=== PATIENT | female | born 1970 | race Caucasian/White ===

== ENCOUNTER 2018-09-06 11:45 | Emergency (ER) | payer MEDICARE, OTHER ==
[~2018-09-06] VITALS: Ht 160 cm; Wt 72.6 kg
[2018-09-06] MEDS ORDERED: AMLODIPINE (11:59)
[2018-09-06] MEDS ORDERED: COREG (11:59)
--- NOTE | 2018-09-06 12:10 | NUR ---
Dr. Rahman here to see pt for MSE.
--- NOTE | 2018-09-06 13:04 | NUR ---
Patient discharged to home in stable conditon. Written and verbal after care instructions given. Patient verbalizes understanding of instructions. Rx x1 given. pt took all belongings. pt ambulatory with a steady gait
[2018-09-06 13:05] VITALS: BP 148/72
== END 2018-09-06 13:06 | disposition home or self-care (01) ==
LOC: ER 11:48
DX: S20.211A Contusion of right front wall of thorax, initial encounter (principal); Z79.899 Other long term (current) drug therapy; W18.30XA Fall on same level, unspecified, initial encounter; Y93.89 Activity, other specified; Y92.89 Other specified places as the place of occurrence of the external cause; Y99.8 Other external cause status
CPT/HCPCS: 71101; A4663

== ENCOUNTER 2018-12-18 20:26 | Emergency (ER) | payer MEDICARE, OTHER ==
[~2018-12-18] VITALS: Ht 157.5 cm; Wt 72.6 kg
[~2018-12-18 20:26] MED LIST: AMLODIPINE; COREG
--- NOTE | 2018-12-18 21:07 | NUR ---
Patient seen by ER MD, awaiting Xrays at this time. ultra sound technician is aware of new orders.
--- NOTE | 2018-12-18 21:09 | NUR ---
Xray at bedside.
--- NOTE | 2018-12-18 21:19 | NUR ---
Visitor at bedside
--- NOTE | 2018-12-18 21:42 | NUR ---
Patient given Motrin per ER MD order. Well tolerated by patient. no acute distress noted. VSS
[2018-12-18] MEDS ORDERED: IBUPROFEN 600 MG TABLET ONE (21:43)
[2018-12-18] MEDS ORDERED: IBUPROFEN 600 MG TABLET PO ONE (21:45)
--- NOTE | 2018-12-18 22:05 | NUR ---
Patient in bed, laughing and joking with family member. No visible distress noted at this time. Will continue to monitor patient. VSS
--- NOTE | 2018-12-18 22:40 | NUR ---
Patient discharged to home in stable conditon. Written and verbal after care instructions given. Patient verbalizes understanding of instructions. Ambulated from ER with stable gait. All belongings with patient.
[2018-12-18 22:41] VITALS: BP 128/74
== END 2018-12-18 22:42 | disposition home or self-care (01) ==
LOC: ER 20:26
DX: S60.221A Contusion of right hand, initial encounter (principal); F12.10 Cannabis abuse, uncomplicated; Z79.899 Other long term (current) drug therapy; W19.XXXA Unspecified fall, initial encounter; Y93.89 Activity, other specified; Y92.89 Other specified places as the place of occurrence of the external cause; Y99.8 Other external cause status
CPT/HCPCS: 73130; A4663